=== PATIENT | female | born 1935 | race Caucasian/White ===

== ENCOUNTER 2017-03-09 09:18 | Emergency (ER) | payer OTHER, MEDICAID ==
[~2017-03-09] VITALS: Ht 165.1 cm; Wt 62.1 kg
[~2017-03-09 09:18] MED LIST: AMBIEN 10 MG TA10 MG; AMBIEN 5 MG TABL5 M1 PO; AMBIEN CR12.5 MG PO; AMLODIPINE BESY10 MG PO; ASPIRIN EC81 M1 PO; ASPIRIN325 PO; AZOR 10-40 MG1 EACH PO; BENTYL 10 MG CA10 MG; CALCIUM 500 +1 EAC5 PO; CALCIUM 600 +1 EA11 PO; CALCIUM PO; CARVEDILOL25 MG PO; CATAPRES-TTS 10.1 M1 TRANSDERM; CLONIDINE0.1 PO; COUMADIN 2.5MG2.5 M1 PO; COUMADIN 4 MG TA4 M1 PO; COUMADIN 5 MG TA5 M1 PO; COZAAR100 MG; COZAAR100 MG PO; DILANTIN100 MG PO; DYAZIDE 37.5-21 EACH PO; EFFEXOR XR37.5 MG PO; EFFEXOR XR75 MG PO; FLECAINIDE ACET50 M1 PO; GLY-OXIDE15 ML; HYDRALAZINE 2525 MG PO; HYDRALAZINE HC100 MG PO; HYDROCHLOROTHIA25 M2 PO; IMDUR 60 MG TAB60 M1 PO; IMDUR 60 MG TAB60 MG; IRON159 MG; K-DUR 20 MEQ T20 MEQ PO; KEPPRA750 MG PO; LASIX 40 MG TAB40 MG; LASIX 80 MG TAB80 MG PO; LEVAQUIN 750 M750 MG PO; LIPITOR40 MG PO; LOMOTIL TABLET1 EACH; LOPRESSOR100 M1 PO; MAGNESIUM PO; MAGNESIUM400 MG PO; MAGOX 400400 MG PO; METOPROLOL PO; MIRALAX17 GM PO; NAPROSYN500 MG PO; NIFEDIPINE ER60 M1 PO; NYSTATIN 1100000 U/M SW&SWALLOW; NYSTATIN100000 UNI SWISH&SPIT; ONDANSETRON HCL4 M2 PO; OXYCODONE HCL 55 MG PO; OXYCONTIN20 M1 PO; PANTOPRAZOLE SO40 MG PO; PERCOCET 10-321 EACH PO; PREDNISONE 5 MG5 MG PO; PROTONIX40 M1 PO; REMERON15 MG; SYSTANE 0.3-0.1 EACH OPHTHALMIC; SYSTANE EYE DROPS; TOPROL XL100 MG PO; TRADJENTA5 MG PO; TRAZODONE 150150 M1 PO; TRIAMTERENE/HCTZ PO; TRICOR145 MG PO; VENTOLIN HFA 1818 GM INH; XANAX 0.5 MG0.5 M1 PO; ZYPREXA5 MG PO
[2017-03-09] MEDS ORDERED: GABAPENTIN 100100 MG PO (09:57)
[2017-03-09] MEDS ORDERED: HYDRALAZINE 2525 MG PO (09:58)
[2017-03-09] MEDS ORDERED: NIFEDIPINE ER60 M1 PO (09:58)
[2017-03-09] MEDS ORDERED: MOVANTIK25 MG PO (09:59)
[2017-03-09] MEDS ORDERED: OXYCONTIN10 M1 PO (10:00)
[2017-03-09] MEDS ORDERED: EFFEXOR XR75 MG PO (10:00)
[2017-03-09] MEDS ORDERED: TRAZODONE HCL100 MG PO (10:00)
[2017-03-09 10:02] LABS: HEMOGLOBIN 13.6 gm/dL (12.0-15.0); MCH 30.2 pg (26.0-34.0); MCHC 33.9 g/dL (28.0-37.0); MCV 89.3 fL (80.0-100.0); MPV 7.3 fl. (7.2-11.1); RBC 4.48 mil/uL (4.20-5.00); RDW-CV 13.8 % (10.5-14.5); WBC 4.9 thou/uL (4.0-11.0)
[2017-03-09 10:07] LABS: ANION GAP 3 mmol/L (7-16); BUN 21 mg/dL (7-18); CALCIUM 9.9 mg/dL (8.5-10.1); CHLORIDE 101 mmol/L (98-107); CO2 36 mmol/L (21-32); CREATININE 1.1 mg/dL (0.6-1.3); GLUCOSE 159 mg/dL (70-99); SODIUM 140 mmol/L (136-145)
[2017-03-09 10:14] LABS: ALBUMIN 3.2 g/dL (3.4-5.0); ALKALINE PHOSPHATASE 106 U/L (46-116); SGOT 14 U/L (15-37); SGPT 13 U/L (30-65); TOTAL BILIRUBIN 0.5 mg/dL (<0.1-1.0); TOTAL PROTEIN 7.2 g/dL (6.4-8.2); TROPONIN-I LEVEL <0.06 ng/mL (<0.06)
[2017-03-09 10:16] LABS: URINE BILIRUBIN NEGATIVE (Negative); URINE BLOOD TRACE (Negative); URINE CLARITY CLEAR; URINE COLOR YELLOW; URINE GLUCOSE-RANDOM NEGATIVE (Negative); URINE KETONES NEGATIVE (Negative); URINE LEUKOCYTES-REFLEX NEGATIVE (Negative); URINE NITRITE-REFLEX NEGATIVE (Negative); URINE PROTEIN 1+ (Negative); URINE UROBILINOGEN 0.2 E.U./dl (0.2-1.0)
[2017-03-09 10:31] VITALS: BP 120/53
--- NOTE | 2017-03-09 17:20 | EKG ---
[place] [address] ELECTROCARDIOGRAM REPORT Name: RENAE LUCERO Room: [facility]#: [id number] Admission: 03/09/17 Attend Phys: Discharge: 03/09/17 Date of : 31 Report #: [id number] THIS REPORT FOR: //name// [facility] ED Test Date: 2017-03-09 Test Time: 09:54:29 Pat Name: RENAE LUCERO Department: Room: Gender: F Vp Of Technology: ROXY : 1935 Requested By: Jonathan Eldridge Order Number: [id number] MD: Luther Laird Measurements Intervals [place] Rate: 62 P: 3 MA: 206 QRS: 18 QRSD: 86 T: 110 QT: 456 QTc: 463 Interpretive Statements Sinus rhythm LVH with secondary repolarization abnormality Anterior ST elevation, probably due to LVH Compared to ECG 10/13/2016 08:40:18 Atrial premature complex(es) no longer present ST (T wave) deviation still present Electronically Signed On 03-09-2017 17:20:06 [employer] by Luther Laird [email or web address] <ELECTRONICALLY SIGNED> By: Luther Laird MD, [facility] 03/09/17 [phone] [id number] Luther Laird MD, [facility] /EPI
== END 2017-03-09 10:32 | disposition home or self-care (01) ==
LOC: M.ERS 09:18
PROVIDERS: Emergency Medicine Emergency Medical Services
DX: I11.0 Hypertensive heart disease with heart failure (principal); I50.32 Chronic diastolic (congestive) heart failure; E11.9 Type 2 diabetes mellitus without complications; F32.9 Major depressive disorder, single episode, unspecified; E78.5 Hyperlipidemia, unspecified; I48.91 Unspecified atrial fibrillation; Z88.5 Allergy status to narcotic agent; Z88.1 Allergy status to other antibiotic agents; Z91.040 Latex allergy status; Z90.49 Acquired absence of other specified parts of digestive tract; Z90.710 Acquired absence of both cervix and uterus; Z88.2 Allergy status to sulfonamides; Z88.8 Allergy status to other drugs, medicaments and biological substances; Z86.73 Personal history of transient ischemic attack (TIA), and cerebral infarction without residual deficits

== ENCOUNTER 2017-09-18 09:06 | Inpatient (IN) | payer OTHER, MEDICAID ==
[2017-09-18] VITALS (14 sets, daily range): BP systolic 161–192; BP diastolic 72–96
[~2017-09-18] VITALS: Ht 157.5 cm; Wt 69.5 kg
[~2017-09-18 09:06] MED LIST changes: +GABAPENTIN 100100 MG PO; +MOVANTIK25 MG PO; +OXYCONTIN10 M1 PO; +TRAZODONE HCL100 MG PO
[2017-09-18 09:24] LABS: ABSOLUTE EOSINOPHILS 0.1 thou/uL (0.0-0.7); ABSOLUTE LYMPHOCYTES 1.1 thou/uL (0.8-5.3); ABSOLUTE MONOCYTES 0.6 thou/uL (0.0-1.2); ABSOLUTE NEUTROPHILS 5.1 thou/uL (1.6-8.1); BASOPHILS 0.6 %; EOSINOPHILS 1.8 %; HEMATOCRIT 33.7 % (37.0-47.0); HEMOGLOBIN 10.9 gm/dL (12.0-15.0); LYMPHOCYTES 15.7 %; MCH 29.5 pg (26.0-34.0); MCHC 32.3 g/dL (28.0-37.0); MCV 91.2 fL (80.0-100.0); MONOCYTES 8.8 %; MPV 7.2 fl. (7.2-11.1); NUCLEATED RBCS 0 /100WBC; PLATELET COUNT* 270 thou/uL (150-400); POLYS 73.1 %; RBC 3.69 mil/uL (4.20-5.00); RDW-CV 15.2 % (10.5-14.5)
[2017-09-18] MEDS ORDERED: VITAMIN D3400 UNIT PO (09:24)
[2017-09-18] MEDS ORDERED: MELATONIN5 M1 PO (09:25)
[2017-09-18] MEDS ORDERED: PROCARDIA XL60 MG PO (09:25)
[2017-09-18 09:32] LABS: ANION GAP 4 mmol/L (7-16); BUN 22 mg/dL (7-18); CALCIUM 9.9 mg/dL (8.5-10.1); CHLORIDE 102 mmol/L (98-107); CO2 30 mmol/L (21-32); GLUCOSE 159 mg/dL (70-99); POTASSIUM 4.9 mmol/L (3.5-5.1); SODIUM 136 mmol/L (136-145)
[2017-09-18 09:39] LABS: ALBUMIN 2.7 g/dL (3.4-5.0); ALKALINE PHOSPHATASE 177 U/L (46-116); SGOT 10 U/L (15-37); SGPT 15 U/L (30-65); TOTAL BILIRUBIN 0.4 mg/dL (<0.1-1.0); TOTAL PROTEIN 7.1 g/dL (6.4-8.2); TROPONIN-I LEVEL <0.06 ng/mL (<0.06)
[2017-09-18 09:55] LABS: BE 0.5 mmol/L (-2 to +3); HCO3 26.9 mmol/L (22.0-26.0); PO2 67.5 mmHg (75.0-100.0); pH 7.337 (7.340-7.450)
[2017-09-18 09:56] LABS: PCO2 51.3 mmHg (35.0-45.0)
[2017-09-18 10:15] LABS: APTT 27.1 Seconds (25.0-31.3); INR 1.1; PROTIME 10.7 Seconds (9.20-11.50)
[2017-09-18 17:24] LABS: HCO3 24.3 mmol/L (22.0-26.0); PCO2 47.8 mmHg (35.0-45.0); PO2 65.5 mmHg (75.0-100.0); pH 7.324 (7.340-7.450)
--- NOTE | 2017-09-18 17:29 | EKG ---
[place] [address] ELECTROCARDIOGRAM REPORT Name: RENAE LUCERO Room: [address] ADM IN M.R.#: [id number] Admission: 09/18/17 Attend Phys: Ildefonso Villegas MD Discharge: Date of : 31 Report #: [id number] THIS REPORT FOR: //name// [facility] ED Test Date: 2017-09-18 Test Time: 09:31:46 Pat Name: RENAE LUCERO Department: Room: [facility] Gender: F Chronograph Operator: April RALPH : 1935 Requested By: Alex Beach Order Number: [id number] MD: Greg Belcher Measurements Intervals [place] Rate: 144 P: [place]: QRS: 9 QRSD: 90 T: 121 QT: 305 QTc: 472 Interpretive Statements Atrial fibrillation with rapid V-rate Repolarization abnormality, prob rate related Compared to ECG 03/09/2017 09:54:29 Sinus rhythm no longer present Left ventricular hypertrophy no longer present ST (T wave) deviation no longer present Electronically Signed On 09-18-2017 17:29:39 CDT by Greg Belcher [email or web address] <ELECTRONICALLY SIGNED> By: Greg Belcher MD, FAC 09/18/17 1729 0931 Greg Belcher MD, [facility] /EPI
[2017-09-19] VITALS (24 sets, daily range): BP systolic 153–219; BP diastolic 38–134
[2017-09-19 05:38] LABS: POC CA IONIZED 5.5 mg/dL (4.5-5.3); POC HEMOGLOBIN 10.9 g/dL (12.0-17.0); POC POTASSIUM 4.9 mmol/L (3.5-4.9)
[2017-09-19 06:47] LABS: BE -2.9 mmol/L (-2 to +3); HCO3 22.3 mmol/L (22.0-26.0); PCO2 40.3 mmHg (35.0-45.0); PO2 73.2 mmHg (75.0-100.0); pH 7.361 (7.340-7.450)
[2017-09-19 08:22] LABS: HEMATOCRIT 32.6 % (37.0-47.0); HEMOGLOBIN 10.6 gm/dL (12.0-15.0); MCH 29.5 pg (26.0-34.0); MCHC 32.6 g/dL (28.0-37.0); MCV 90.2 fL (80.0-100.0); MPV 7.5 fl. (7.2-11.1); RBC 3.61 mil/uL (4.20-5.00); WBC 10.5 thou/uL (4.0-11.0)
[2017-09-19 09:08] LABS: MAGNESIUM 1.5 mg/dL (1.8-2.4); POTASSIUM 4.2 mmol/L (3.5-5.1)
--- NOTE | 2017-09-19 14:28 | 2DMMODE ---
[place] [address] 2 D/M-MODE ECHOCARDIOGRAM Name: RENAE LUCERO Room: [address] [facility] IN ..#: [id number] Admission: 09/18/17 Attend Phys: Ildefonso Villegas, Discharge: Date of : 31 Date of Service: 09/19/17 1427 Report #: [id number] THIS REPORT FOR: //name// APPROVED REPORT Study performed: 09/19/2017 09:38:09 EXAM: Comprehensive 2D, Doppler, and color-flow Echocardiogram Patient Location: In-Patient Room #: [facility] Status: routine BSA: 1.68 HR: 86 bpm BP: 170/99 mmHg Rhythm: Atrial Fibrillation Other Information Study Quality: Good Indications Atrial Fibrillation Dyspnea 2D Dimensions LVEF(%): 74.62 (>50%) IVSd: 16.49 (7-11mm) LVOT Diam: 19.81 (18-24mm) LVDd: 35.95 mm PWd: 12.37 (7-11mm) Ascending Ao: 33.73 (22-36mm) LVDs: 20.63 (25-40mm) Aortic Root: 31.96 mm Ron's LVEF: 74.62 % Volumes Left Atrial Volume (Systole) LA ESV Index: 62.30 mL/m2 Aortic Valve AoV Peak Leander.: 3.00 m/s AO Peak Gr.: 36.09 mmHg LVOT Max P.61 mmHg AO Mean Gr.: 21.02 mmHg LVOT Mean P.53 mmHg LVOT Max V: 1.07 m/s AO V2 VTI: 67.65 cm LVOT Mean V: 0.74 m/s RON (VTI): 0.96 cm2 LVOT V1 VTI: 21.17 cm AI [place]: 2.57 m/s2 AI PHT: 385.55 [place] [address] 2 D/M-MODE ECHOCARDIOGRAM Name: RENAE LUCERO Room: [address] IN ..#: [id number] Admission: 09/18/17 Attend Phys: Ildefonso Villegas, Discharge: Date of : 31 Date of Service: 09/19/17 1427 Report #: [id number] Mitral Valve MV Decel. Time: 108.78 ms MV PHT: 31.55 ms MVA (PHT): 6.97 cm2 TDI Medial E' Leander.: 0.09 m/s Lateral E' [place].: 0.09 m/s Pulmonary Valve PV Peak Leander.: 1.01 m/s PV Peak Gr.: 4.12 mmHg Tricuspid Valve RAP Estimate: 5.00 mmHg TR Peak Gr.: 44.42 mmHg RVSP: 49.42 mmHg PA Pressure: 49.42 mmHg Left Ventricle The left ventricle is normal size. There is normal LV segmental wall motion. Moderate concentric left ventricular hypertrophy. Left ventricular systolic function is normal. The left ventricular ejection fraction is within the normal range. LVEF is 65%. This study is not technically sufficient to allow evaluation of the LV diastolic function due to atrial fibrillation. Right Ventricle The right ventricle is normal size. The right ventricular systolic function is normal. Atria Left atrium is moderately dilated. The right atrium size is normal. Aortic Valve Severe aortic valve sclerosis. Mild aortic regurgitation. Moderate aortic stenosis. Mitral Valve Moderate mitral annular calcification. Mild mitral regurgitation. No evidence of mitral valve stenosis. Tricuspid Valve The tricuspid valve is normal in structure. Mild tricuspid regurgitation. [place] [address] 2 D/M-MODE ECHOCARDIOGRAM Name: RENAE LUCERO Room: [address]#: [id number] Admission: 09/18/17 Attend Phys: Ildefonso Villegas, Discharge: Date of : 31 Date of Service: 09/19/17 1427 Report #: [id number] Pulmonic Valve The pulmonary valve is normal in structure. Mild pulmonic regurgitation. Great Vessels The aortic root is normal in size. IVC is normal in size and collapses with >50% inspiration Pericardium There is no pericardial effusion. <Conclusion> The left ventricle is normal size. Moderate concentric left ventricular hypertrophy. Left ventricular systolic function is normal. The left ventricular ejection fraction is within the normal range. LVEF is 65%. This study is not technically sufficient to allow evaluation of the LV diastolic function due to atrial fibrillation. The right ventricle is normal size. Left atrium is moderately dilated. Severe aortic valve sclerosis. Mild aortic regurgitation. Moderate aortic stenosis. Moderate mitral annular calcification. Mild mitral regurgitation. No evidence of mitral valve stenosis. The tricuspid valve is normal in structure. Mild tricuspid regurgitation. Moderate pulmonary hypertension. IVC is normal in size and collapses with >50% inspiration There is no pericardial effusion. There is normal LV segmental wall motion. <ELECTRONICALLY SIGNED> By: Lenny Winslow MD, FACC 09/19/17 1427 142 142 Lenny Winslow MD, FACC /INF
[2017-09-20] VITALS (60 sets, daily range): BP systolic 122–228; BP diastolic 50–130
[2017-09-20 08:31] LABS: HEMATOCRIT 34.3 % (37.0-47.0); MCH 28.7 pg (26.0-34.0); MCV 89.8 fL (80.0-100.0); RBC 3.82 mil/uL (4.20-5.00); WBC 15.6 thou/uL (4.0-11.0)
[2017-09-20 08:46] LABS: CREATININE 1.3 mg/dL (0.6-1.3); MAGNESIUM 1.5 mg/dL (1.8-2.4)
[2017-09-20 08:49] LABS: CHOLESTEROL 225 mg/dL (<200); HDL CHOLESTEROL 66 mg/dL (>40); LDL CHOLESTEROL 144 mg/dL (<100); TC:HDL 3.4 Ratio (Not establshd); TRIGLYCERIDE 78 mg/dL (<150); VLDL 16 mg/dL (<40)
[2017-09-20 08:51] LABS: SERUM ASSESSMENT Clear
[2017-09-20 09:13] LABS: POTASSIUM 2.9 mmol/L (3.5-5.1)
[2017-09-21] VITALS (26 sets, daily range): BP systolic 104–181; BP diastolic 43–112
[2017-09-21 02:07] LABS: GLYCOHEMOGLOBIN (HGB A1C) 5.8 % (4.8-5.6)
[2017-09-21 07:55] LABS: HEMATOCRIT 31.2 % (37.0-47.0); MCH 28.7 pg (26.0-34.0); MCHC 32.1 g/dL (28.0-37.0); MCV 89.3 fL (80.0-100.0); MPV 7.4 fl. (7.2-11.1); RBC 3.49 mil/uL (4.20-5.00); RDW-CV 15.6 % (10.5-14.5); WBC 15.1 thou/uL (4.0-11.0)
[2017-09-21 07:58] LABS: CALCIUM 9.4 mg/dL (8.5-10.1); CREATININE 1.3 mg/dL (0.6-1.3); MAGNESIUM 1.7 mg/dL (1.8-2.4); POTASSIUM 3.5 mmol/L (3.5-5.1)
--- NOTE | 2017-09-21 15:24 | EKG ---
[place] [address] ELECTROCARDIOGRAM REPORT Name: RENAE LUCERO Room: [address] ADM IN M.R.#: [id number] Admission: 09/18/17 Attend Phys: Ildefonso Villegas MD Discharge: Date of : 31 Report #: [id number] THIS REPORT FOR: //name// [facility] Test Date: 2017-09-21 Test Time: 13:09:16 Pat Name: RENAE LUCERO Department: Room: [address] Gender: F [employer]: : 1935 Requested By: Jada Case Order Number: [id number] Janice MD: Luther Laird Measurements Intervals [place] Rate: 90 P: [place]: QRS: 23 QRSD: 87 T: 133 QT: 454 QTc: 556 Interpretive Statements Atrial fibrillation Probable LVH with secondary repol abnrm Compared to ECG 09/18/2017 09:31:46 rate slowed Electronically Signed On 09-21-2017 15:23:57 CDT by Luther Laird [email or web address] <ELECTRONICALLY SIGNED> By: Luther Laird MD, [facility] 09/21/17 1523 1309 1309 Luther Laird MD, FAC /EPI
[2017-09-21 19:20] LABS: ICTOTEST (BILI CONFIRMATORY) Negative (Negative); URINE BILIRUBIN 2+ (Negative); URINE BLOOD 3+ (Negative); URINE CLARITY CLOUDY; URINE COLOR RED; URINE GLUCOSE-RANDOM TRACE (Negative); URINE KETONES TRACE (Negative); URINE LEUKOCYTES-REFLEX 1+ (Negative); URINE NITRITE-REFLEX POSITIVE (Negative); URINE PROTEIN 2+ (Negative)
[2017-09-21 19:21] LABS: BACTERIA-REFLEX >30 Many /HPF (None Seen); CASTS None Seen /LPF (None Seen); MUCUS 0-3 Light strn/LPF (None Seen); SQUAMOUS 0-3 Few /LPF (0-3); URINE RBC >20 Many /HPF (0-2); URINE WBC-REFLEX 6-15 Few /HPF (0-5)
[2017-09-21 19:22] LABS: CRYSTALS None Seen /LPF (None Seen)
[2017-09-22] VITALS (23 sets, daily range): BP systolic 102–162; BP diastolic 42–71
[2017-09-22 04:45] LABS: HEMATOCRIT 25.1 % (37.0-47.0); HEMOGLOBIN 8.3 gm/dL (12.0-15.0); MCH 29.4 pg (26.0-34.0); MCHC 32.9 g/dL (28.0-37.0); MCV 89.5 fL (80.0-100.0); MPV 7.4 fl. (7.2-11.1); RBC 2.81 mil/uL (4.20-5.00); RDW-CV 15.4 % (10.5-14.5)
[2017-09-22 05:23] LABS: CALCIUM 8.9 mg/dL (8.5-10.1); CREATININE 1.4 mg/dL (0.6-1.3); MAGNESIUM 1.5 mg/dL (1.8-2.4); POTASSIUM 3.2 mmol/L (3.5-5.1)
--- NOTE | 2017-09-22 10:44 | CON ---
[address] [address] CONSULTATION Name: RENAE LUCERO Room: [address] IN M.R.#: [id number] Admission: 09/18/17 Attend Phys: Ildefonso Villegas MD Discharge: Date of : 31 Report #: [id number] THIS REPORT FOR: //name// CC: Dominique Villegas DATE OF SERVICE: 09/21/2017 INFECTIOUS DISEASE CONSULTATION ATTENDING PHYSICIAN: Dr. Villegas. REASON FOR EVALUATION: Pneumonitis, complicated by respiratory failure. HISTORY OF PRESENT ILLNESS: Chart reviewed, the patient examined. This is an 82-year-old, who I have seen previously with pneumonitis, who has known cardiomyopathy, severe aortic valve sclerosis and moderate aortic stenosis, who is admitted through the Emergency Room with complaints of altered mental status. There is some question whether she had taken excess narcotics. It is notable she had a recent left total hip arthroplasty, which was complicated by pneumonitis. She is seen in the Emergency Room. 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 She does arouse. She is nonverbal. X-ray shows diffuse interstitial infiltrates, left basilar consolidation. She has not had recorded recent temperature elevations. She has been on a combination therapy with Zosyn and vancomycin. ALLERGIES: QUITE EXTENSIVE INCLUDING CEPHALOSPORINS, SULFA, MORPHINE, CODEINE, ACETAMINOPHEN, LATEX AND CITALOPRAM. CURRENT MEDICATIONS: Include apixaban, amiodarone, clonidine, metoprolol, nicardipine, pantoprazole, vancomycin, melatonin, nifedipine XL, cholecalciferol, trazodone and Zosyn. PAST MEDICAL HISTORY: Hypertension; diabetes mellitus type 2, non-insulin requiring; dysarthria; depression; there is a history of uterine cancer, post hysterectomy; cholecystectomy; thyroidectomy; hyperlipidemia; atrial fibrillation; aortic valve dysfunction; pulmonary hypertension and left total knee arthroplasty earlier this year. SOCIAL HISTORY: Nonsmoker, no ethanol. FAMILY HISTORY: Noncontributory. REVIEW OF SYSTEMS: [place] [address] CONSULTATION Name: RENAE LUCERO Room: [address] IN [facility].#: [id number] Admission: 09/18/17 Attend Phys: Ildefonso Villegas MD Discharge: Date of : 31 Report #: [id number] PHYSICAL EXAMINATION: GENERAL: She appears chronically ill, undernourished, in [id number] distress. VITAL SIGNS: Temperature 97.6, pulse 90, respirations 19 and blood pressure is 117/43. SKIN: Warm, dry. No rashes. HEENT: Otherwise, unremarkable. She has nasal cannula oxygen in place. NECK: Supple. LUNGS: Scattered coarse breath sounds. She does have a murmur. HEART: Irregular. ABDOMEN: Soft, nontender. EXTREMITIES: Distal lower extremities without significant edema or cyanosis. GENITOURINARY: Deferred. RECTAL: Deferred. LABORATORY DATA: Most recent CBC: White count of 15.1, H and H 10.0 and 31.2 and platelets of 311,000. Electrolytes: Sodium 141, potassium 3.5, chloride 105, bicarbonate is 26, BUN and creatinine 26 and 1.3 and estimated GFR of 39. Hemoglobin A1c of 5.8. Legionella urinary antigen was negative. Pneumococcal antigen in the urine is pending. Most recent CT of the head shows findings consistent with subacute CVA in the bilateral occipital lobes and left maxillary sinus disease. Blood cultures are sterile thus far. ASSESSMENT AND PLAN: Pneumonitis, complicated by respiratory insufficiency. At this point, she is not requiring more support, other than nasal cannula oxygen. We will continue combination therapy. She is certainly at risk for aspiration. Noted Neuro evaluation in progress. We will have to monitor expectantly, at a risk for additional infectious complications. Overall, prognosis appears guarded. <ELECTRONICALLY SIGNED> By: José Roberts MD 09/22/17 1044 1423 [id number] Roberts MD /nt
--- NOTE | 2017-09-22 13:39 | EKG ---
[place] [address] ELECTROCARDIOGRAM REPORT Name: RENAE LUCERO Room: [address] ADM IN M.R.#: [id number] Admission: 09/18/17 Attend Phys: Ildefonso Villegas MD Discharge: Date of : 31 Report #: [id number] THIS REPORT FOR: //name// [facility] Test Date: 2017-09-22 Test Time: 07:36:02 Pat Name: RENAE LUCERO Department: Room: [address] Gender: F House Decorator: [facility] : 1935 Requested By: Jada Case Order Number: [id number] Reading MD: Luther Laird Measurements Intervals [place] Rate: 100 P: [place]: QRS: 12 QRSD: 93 T: 167 QT: 396 QTc: 511 Interpretive Statements Atrial fibrillation Ventricular premature complex Probable LVH with secondary repol abnrm Prolonged QT interval Compared to ECG 09/21/2017 13:09:16 Ventricular premature complex(es) now present Prolonged QT interval now present Electronically Signed On 09-22-2017 13:39:10 CDT by Luther Laird [email or web address] <ELECTRONICALLY SIGNED> By: Luther Laird MD, FACC 09/22/17 1339 0736 0736 Luther Laird MD, [facility] /EPI
[2017-09-22 20:42] LABS: MAGNESIUM 1.9 mg/dL (1.8-2.4)
[2017-09-22 21:02] LABS: POTASSIUM 2.8 mmol/L (3.5-5.1)
[2017-09-23] VITALS (14 sets, daily range): BP systolic 110–208; BP diastolic 45–102
[2017-09-23 04:43] LABS: HEMATOCRIT 28.6 % (37.0-47.0); HEMOGLOBIN 9.4 gm/dL (12.0-15.0); MCH 29.4 pg (26.0-34.0); MCHC 32.7 g/dL (28.0-37.0); MCV 89.9 fL (80.0-100.0); MPV 8.4 fl. (7.2-11.1); RBC 3.18 mil/uL (4.20-5.00); RDW-CV 15.4 % (10.5-14.5); WBC 10.7 thou/uL (4.0-11.0)
[2017-09-23 05:24] LABS: ALBUMIN 2.7 g/dL (3.4-5.0); CALCIUM 9.2 mg/dL (8.5-10.1); CREATININE 1.1 mg/dL (0.6-1.3); MAGNESIUM 1.7 mg/dL (1.8-2.4); POTASSIUM 3.6 mmol/L (3.5-5.1); TOTAL BILIRUBIN 0.5 mg/dL (<0.1-1.0); TOTAL PROTEIN 5.9 g/dL (6.4-8.2)
--- NOTE | 2017-09-23 11:36 | CON ---
[address] [address] CONSULTATION Name: RENAE LUCERO Room: [address] IN M.R.#: [id number] Admission: 09/18/17 Attend Phys: Ildefonso Villegas MD Discharge: Date of : 31 Report #: [id number] THIS REPORT FOR: //name// CC: Dominique Villegas DATE OF SERVICE: 09/22/2017 REASON FOR CONSULTATION: Microscopic hematuria. HISTORY OF PRESENT ILLNESS: The patient is noncommunicative, so the history of present illness is obtained from the chart. There are no family members present. She has a fairly complex recent medical history. She is 82 years old. She has known history of cardiomyopathy, severe aortic valve sclerosis. She had recent left hip arthroplasty, which was complicated by pneumonitis. She presented to the emergency room with altered mental status. There was concern that she has bilateral occipital stroke. She is admitted to hospitalist service. The hospitalist service and multiple consultants are following. Due to her poor medical condition, she was admitted to the ICU and Hines catheter was placed. She has moderate amount of microscopic hematuria. Urology was consulted for further evaluation. There is also concern that she may have urinary tract infection. At this point, the patient is noncommunicative, she is arousable and does open her eyes, but does not appear to make any meaningful or purposeful movements. She appears to be comfortable. PAST MEDICAL HISTORY: Hypertension, diabetes type 2, non-insulin requiring, dysarthria, depression, history of uterine cancer. She has had a cholecystectomy, hysterectomy, and thyroidectomy. She has hyperlipidemia, atrial fibrillation, history of aortic valve dysfunction, pulmonary hypertension, and total knee arthroplasty earlier this year. SOCIAL HISTORY: Nonsmoker, no alcohol. ALLERGIES: CEPHALOSPORINS, SULFA, MORPHINE, CODEINE, ACETAMINOPHEN, LATEX, and CITALOPRAM. MEDICATIONS: Apixaban, amiodarone, clonidine, metoprolol, nicardipine, pantoprazole, vancomycin, melatonin, nifedipine XL, cholecalciferol, trazodone, and Zosyn. FAMILY HISTORY: Noncontributory. REVIEW OF SYSTEMS: Unobtainable. PHYSICAL EXAMINATION: VITAL SIGNS: Temperature is 36.7, pulse rate 92, heart rate 72, [place] [address] CONSULTATION Name: RENAE LUCERO Room: [address] IN [facility].#: [id number] Admission: 09/18/17 Attend Phys: Ildefonso Villegas MD Discharge: Date of : 31 Report #: [id number] rate 17, blood pressure 124/53. GENERAL: She is awake and arousable, does not appear to make any meaningful eye contact. No purposeful movements. She does not appear to be in any distress. NECK: Supple. LUNGS: Nonlabored. No use of accessory muscles. HEART: Regular rate and rhythm. ABDOMEN: Soft, nontender, nondistended. BACK: No CVA tenderness. GENITOURINARY: She has Hines catheter dependent drainage. Normal external female genitalia. No palpable bladder. EXTREMITIES: No cyanosis, clubbing, edema. SKIN: Warm, dry, and intact. NEUROLOGIC: She is aphasic and does not appear to make any purposeful movements with either upper extremities or lower extremities. LABORATORY DATA: White count 7, hemoglobin is 8.3, platelets 194. Urine: Greater than 20 red blood cells per high power field, 15 white blood cells per high power field, nitrite positive. Chemistry: Sodium is 144, potassium 3.2, chloride 110, BUN 26, creatinine 1.4. IMAGING: I personally reviewed the CT scan of the abdomen and pelvis dated 09/22/2017. She has patchy consolidation in both lung bases suggestive of multifocal pneumonia. No renal masses, hydro or kidney stones. There is a left hip arthroplasty, which obscures the left distal ureter and a port in the left bladder, but no signs of obstruction in either kidney. ASSESSMENT AND PLAN: 1. Microscopic hematuria. This is likely due to urinary tract infection. Would recommend treating urinary tract infection as a complicated urinary tract infection with 10 to 14 days of antibiotics. We would recommend rechecking urine at that time. If her urine is clear, then no further workup would be necessary. If she continues to have persistent microscopic hematuria, then I would recommend followup with urology for possible cystoscopy and repeat imaging of her upper tracts. 2. Urinary tract infection. Continue empiric antibiotics and await urine culture. Treat as a complicated urinary tract infection. No further recommendations from urology standpoint at this time. We will go ahead and sign off. Please call or reconsult as needed. <ELECTRONICALLY SIGNED> By: Ildefonso Lindsey MD 09/23/17 1136 1430 [id number] Lindsey MD /nt
[2017-09-24 00:28] VITALS: BP 165/105
[2017-09-24 07:32] LABS: HEMOGLOBIN 9.5 gm/dL (12.0-15.0); MCH 28.8 pg (26.0-34.0); MCHC 31.7 g/dL (28.0-37.0); MCV 90.9 fL (80.0-100.0); MPV 7.6 fl. (7.2-11.1); RBC 3.3 mil/uL (4.20-5.00); RDW-CV 16.1 % (10.5-14.5); WBC 24.2 thou/uL (4.0-11.0)
[2017-09-24 07:47] LABS: CALCIUM 9.8 mg/dL (8.5-10.1); CREATININE 1.2 mg/dL (0.6-1.3); POTASSIUM 3.7 mmol/L (3.5-5.1)
[2017-09-24 08:00] VITALS: BP 201/99
[2017-09-24] MEDS ORDERED: MSL20MG/ML PO (11:36)
[2017-09-24] MEDS ORDERED: ATIVAN2 MG/1 ML PO (11:36)
[2017-09-24] MEDS ORDERED: OXYCODONE20 MG/1 ML SUBLING (12:04)
[2017-09-24 16:00] VITALS: BP 146/56
[2017-09-24 20:00] VITALS: BP 177/84
[2017-09-24 23:51] VITALS: BP 132/64
[2017-09-25 04:00] VITALS: BP 132/84
[2017-09-25 08:00] VITALS: BP 157/69
[2017-09-25 09:19] VITALS: BP 157/69
[2017-09-25] MEDS ORDERED: ELIQUIS2.5 MG PO (14:31)
[2017-09-25] MEDS ORDERED: CLONIDINE HCL0.3 M3 SUBLING (14:37)
== END 2017-09-25 14:43 | DRG 177 ==
LOC: M.ERS 09:06 → M.ICU 10:39 → M.TBA-ER 10:39 → M.ICU 11:31 → M.3W 09-23 12:36
PROVIDERS: Family Medicine; ADMIT Internal Medicine
PROC: 5A09357 Assistance with Respiratory Ventilation, Less than 24 Consecutive Hours, Continuous Positive Airway Pressure (ICD-10-PCS; principal; 2017-09-18)
PROC: 5A09357 Assistance with Respiratory Ventilation, Less than 24 Consecutive Hours, Continuous Positive Airway Pressure (ICD-10-PCS; 2017-09-19)
DX: J69.0 Pneumonitis due to inhalation of food and vomit (principal); G92 Toxic encephalopathy; J96.01 Acute respiratory failure with hypoxia; R65.11 Systemic inflammatory response syndrome (SIRS) of non-infectious origin with acute organ dysfunction; I63.9 Cerebral infarction, unspecified; E43 Unspecified severe protein-calorie malnutrition; I50.32 Chronic diastolic (congestive) heart failure; I42.9 Cardiomyopathy, unspecified; N39.0 Urinary tract infection, site not specified; E87.0 Hyperosmolality and hypernatremia; F11.129 Opioid abuse with intoxication, unspecified; J15.6 Pneumonia due to other Gram-negative bacteria; J15.9 Unspecified bacterial pneumonia; E11.9 Type 2 diabetes mellitus without complications; I11.0 Hypertensive heart disease with heart failure; Z96.652 Presence of left artificial knee joint; H47.619 Cortical blindness, unspecified side of brain; F32.9 Major depressive disorder, single episode, unspecified; E78.5 Hyperlipidemia, unspecified; E89.0 Postprocedural hypothyroidism; I27.20 Pulmonary hypertension, unspecified; Z96.642 Presence of left artificial hip joint; D64.9 Anemia, unspecified; E87.6 Hypokalemia; I35.0 Nonrheumatic aortic (valve) stenosis; T40.2X5A Adverse effect of other opioids, initial encounter; I48.0 Paroxysmal atrial fibrillation; Z99.3 Dependence on wheelchair; Y92.89 Other specified places as the place of occurrence of the external cause; Z68.28 Body mass index [BMI] 28.0-28.9, adult; Z86.73 Personal history of transient ischemic attack (TIA), and cerebral infarction without residual deficits; Z85.41 Personal history of malignant neoplasm of cervix uteri; Z90.710 Acquired absence of both cervix and uterus; Z90.49 Acquired absence of other specified parts of digestive tract; Z98.42 Cataract extraction status, left eye; Z98.41 Cataract extraction status, right eye; Z79.899 Other long term (current) drug therapy; Z88.1 Allergy status to other antibiotic agents; Z88.5 Allergy status to narcotic agent; Z88.2 Allergy status to sulfonamides; Z88.8 Allergy status to other drugs, medicaments and biological substances; Z91.040 Latex allergy status

== ENCOUNTER 2017-09-25 14:32 | Inpatient (IN) | payer OTHER ==
[~2017-09-25] VITALS: Ht 157.5 cm; Wt 69.5 kg
--- NOTE | ~2017-09-25 | H ---
[address] [address] HISTORY AND PHYSICAL Name: RENAE LUCERO Room: [address] IN .R.#: [id number] Admission: 09/25/17 Attend Phys: Luana Narayan Discharge: 09/26/17 Date of : 31 Report #: [id number] THIS REPORT FOR: //name// Inpatient hospice. History and Physical is not required. Please see acute admission for details. By: [id number] Records Staff TEOFILO /LISA
[~2017-09-25 14:32] MED LIST changes: +ATIVAN2 MG/1 ML PO; +ELIQUIS2.5 MG PO; +MELATONIN5 M1 PO; +MSL20MG/ML PO; +OXYCODONE20 MG/1 ML SUBLING; +PROCARDIA XL60 MG PO; +VITAMIN D3400 UNIT PO
[2017-09-25] MEDS ORDERED: CLONIDINE HCL0.3 M3 SUBLING (14:37)
[2017-09-25 17:52] VITALS: BP 151/58
[2017-09-25 19:50] VITALS: BP 120/52
[2017-09-25 20:05] VITALS: BP 120/52
== END 2017-09-26 05:15 | DRG 65 ==
LOC: M.3W 14:32
PROVIDERS: ADMIT Internal Medicine
DX: I63.9 Cerebral infarction, unspecified (principal); I50.32 Chronic diastolic (congestive) heart failure; E87.0 Hyperosmolality and hypernatremia; R47.1 Dysarthria and anarthria; F32.9 Major depressive disorder, single episode, unspecified; E78.5 Hyperlipidemia, unspecified; I48.91 Unspecified atrial fibrillation; I11.0 Hypertensive heart disease with heart failure; I27.20 Pulmonary hypertension, unspecified; I35.0 Nonrheumatic aortic (valve) stenosis; D64.9 Anemia, unspecified; D72.829 Elevated white blood cell count, unspecified; Z85.42 Personal history of malignant neoplasm of other parts of uterus; Z79.899 Other long term (current) drug therapy; Z88.5 Allergy status to narcotic agent; Z88.2 Allergy status to sulfonamides; Z88.8 Allergy status to other drugs, medicaments and biological substances; Z91.040 Latex allergy status